=== PATIENT | female | born 1980 | race Caucasian/White ===

== ENCOUNTER 2017-07-19 05:36 | Day surgery (SDC) | payer OTHER ==
[2017-07-11 16:05] LABS: BASOPHILS % (AUTO) 0.4 % (0-1); EOSINOPHILS # (AUTO) 0.3 X10'3 (0-0.9); EOSINOPHILS % (AUTO) 5.3 % (0-6); LYMPHOCYTES # (AUTO) 1.3 X10'3 (1.1-4.8); LYMPHOCYTES % (AUTO) 20.6 % (21-51); MEAN CORPUSCULAR HEMOGLOBIN 30.1 PG (27.0-31.0); MEAN CORPUSCULAR HGB CONC 32.8 % (33.0-36.5); MEAN CORPUSCULAR VOLUME 91.6 FL (78-98); MEAN PLATELET VOLUME 7.9 FL (7.4-10.4); MONOCYTES # (AUTO) 0.6 X10'3 (0-0.9); MONOCYTES % (AUTO) 9.9 % (2-12); NEUTROPHILS # (AUTO) 4.1 X10'3 (1.8-7.7); NEUTROPHILS % (AUTO) 63.8 % (42-75); PRE OP HEMATOCRIT 39.2 % (35.0-45.0); PRE OP HEMOGLOBIN 12.9 g/dL (12.0-16.0); PRE OP PLATELET COUNT 323 X10'3 (140-440); RED BLOOD COUNT 4.28 X10'6 (4.20-5.60); RED CELL DISTRIBUTION WIDTH 12.8 % (11.5-14.5)
[2017-07-11 16:11] LABS: PRE OP PROTIME 10.2 SECONDS (9.0-12.0)
[2017-07-11 16:19] LABS: ALBUMIN 3.9 G/DL (3.4-5.0); ALBUMIN/GLOBULIN RATIO 1.1 (1.1-1.5); ALKALINE PHOSPHATASE 115 IU/L (46-116); BLOOD UREA NITROGEN 12 MG/DL (7-18); BUN/CREATININE RATIO 13.2 (6.6-38.0); CALCIUM 8.5 MG/DL (8.5-10.1); CHLORIDE 105 MMOL/L (99-107); CREATININE 0.91 MG/DL (0.40-0.90); PRE OP ALT 19 U/L (30-65); PRE OP ANION GAP 8 (8-16); PRE OP AST 15 U/L (10-37); PRE OP BILIRUB, TOTAL 0.2 MG/DL (0.0-1.0); PRE OP GLUCOSE 87 MG/DL (70-104); PRE OP POTASSIUM 3.8 MMOL/L (3.4-5.1); PRE OP SODIUM 140 MMOL/L (135-145); TOTAL CARBON DIOXIDE 27.4 MMOL/L (24-32); TOTAL PROTEIN 7.4 G/DL (6.4-8.2); eGFR 70 ML/MIN
[2017-07-11 16:20] LABS: HCG SERUM QL NEGATIVE
[2017-07-19] VITALS (18 sets, daily range): BP systolic 94–118; BP diastolic 53–78
[~2017-07-19] VITALS: Ht 167.6 cm; Wt 60.6 kg
[~2017-07-19 05:36] MED LIST: CETI10CA PO; famotidine 20mg tablet PO ONE; ringers solution, lacted 1,000 ML IV SCH
[2017-07-19] MEDS ORDERED: LIDOcaine 1% (10mg/ml) 2ml vial ONE (06:04)
[2017-07-19] MEDS ORDERED: silver nitrate applicator stick TP ONE (07:57)
[2017-07-19] MEDS ORDERED: propofol inj 20 ML IV ONE ×2 (08:00)
[2017-07-19] MEDS ORDERED: dexamethasone sod phosphate 4mg/ml inj. ONE (08:00)
[2017-07-19] MEDS ORDERED: ondansetron/PF 4mg/2ml inj ONE (08:01)
[2017-07-19] MEDS ORDERED: ringers solution, lacted 1,000 ML IV SCH (08:06)
[2017-07-19] MEDS ORDERED: meperidine/PF 25mg/ml syringe ONE (08:07)
[2017-07-19] MEDS ORDERED: proCHLORperazine 10 MG/2 ml inj IV PRN (08:10)
[2017-07-19] MEDS ORDERED: meperidine/PF 25mg/ml syringe IV PRN (08:10)
[2017-07-19] MEDS ORDERED: acetaminophen 1,000mg/100ml IV 100 ML IV PRN (08:10)
[2017-07-19] MEDS ORDERED: ondansetron/PF 4mg/2ml inj IV PRN (08:10)
[2017-07-19] MEDS ORDERED: meperidine/PF 25mg/ml syringe IV ONE (08:10)
[2017-07-19] MEDS ORDERED: morphine sulfate 8 MG/ML SYRINGE IV PRN (08:10)
== END 2017-07-19 10:40 | disposition home or self-care (01) ==
LOC: PAS 05:36
PROVIDERS: ATTEND Specialist
DX: N93.8 Other specified abnormal uterine and vaginal bleeding (principal); Z98.890 Other specified postprocedural states; Z88.0 Allergy status to penicillin; Z88.1 Allergy status to other antibiotic agents; Z88.6 Allergy status to analgesic agent; Z88.8 Allergy status to other drugs, medicaments and biological substances
CPT/HCPCS: 36415; 58563; 80053; 84703; 85025; 85610; 85730; 86885; 86900; 86901; A4355; A6258; J0131; J1100; J2175; J2405; J2704; J3490; J7120; A7000